=== PATIENT | female | born 1990 | race Caucasian/White ===

== ENCOUNTER 2020-08-08 16:47 | Emergency (ER) | payer OTHER, SELFPAY ==
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
[2020-08-08 16:58] VITALS: BP 129/81; PULSE 99; RESP 16; TEMP 36.5; O2SAT 99
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
== END 2020-08-08 18:13 | disposition home or self-care (01) ==
PROVIDERS: Emergency Provider Emergency Medicine; PCP Family Medicine
DX: S16.1XXA Strain of muscle, fascia and tendon at neck level, initial encounter (principal); E11.9 Type 2 diabetes mellitus without complications; V59.40XA Driver of pick-up truck or van injured in collision with unspecified motor vehicles in traffic accident, initial encounter
CPT/HCPCS: 72125; 99284

== ENCOUNTER → 2021-07-01 08:50 | Outpatient (CLI) | payer OTHER, SELFPAY ==
--- NOTE | ~2021-07-01 | MMUS_ITS ---
EXAMINATION: MM diagnostic dario BI w kadeem, US breast LT limited HISTORY: Left breast lump, lower mid left breast f TECHNIQUE: Bilateral ML, MLO and CC full field and left additional spot ML, MLO and CC 3-D tomosynthe sis images were performed and synthetic 2-D images were generated. CAD analysis was submitted and int erpreted. High resolution targeted 6:00 left breast ultrasound was performed. COMPARISON: 07/01/2021 bilateral diagnostic mammogram BREAST PARENCHYMAL COMPOSITION: There are scattered areas of fibroglandular density. FINDINGS: MAMMOGRAPHIC FINDINGS: An ill-defined approximately 8 mm opacity is noted in the lower mid left breast at approximately 6:00 position. Targeted left breast ultrasound examination was performed. No suspicious mass, architectural distortion, malignant calcification, skin thickening or retraction of either breast is noted otherwise. ULTRASOUND: 6:00 8 cm from nipple at area of clinical complaint of left breast lump: Parallel circumscribed hypoe choic approximately 7.2 x 2.4 x 5.1 mm lesion with through transmission posterior enhancement. A smal l tract to the skin is suggested. This is likely a complicated cyst, likely a sebaceous cyst. IMPRESSION: 1. Benign sebaceous cyst at 6:00 8 cm from nipple; no mammographic evidence of malignancy 2. Routine mammographic screening is recommended BI-RADS Category 2: Benign finding(s). Reviewed, dictated and finalized at location A. IMPRESSION: 1. Benign sebaceous cyst at 6:00 8 cm from nipple; no mammographic evidence of malignancy 2. Routine mammographic screening is recommended BI-RADS Category 2: Benign finding(s).
== END ==
PROVIDERS: PCP Family Medicine; Visit Provider Advanced Practice Midwife
DX: N63.25 Unspecified lump in the left breast, overlapping quadrants (principal)
CPT/HCPCS: 76642; 77062; 77066; G0279

== ENCOUNTER 2021-09-18 12:54 | Outpatient (CLI) | payer OTHER, SELFPAY ==
--- NOTE | ~2021-09-18 | MR_ITS ---
EXAMINATION: MR pituitary wo/w con DATE: 09/18/2021 14:14 INDICATION: Hyperprolactinemia. TECHNIQUE: Magnetic resonance imaging (MRI) of the brain and brainstem was performed without and with 15 mL MultiHance intravenous contrast. COMPARISON: None. FINDINGS: The pituitary is normal in size with height of 6 mm. The infundibulum is at the midline. Th ere is no intracranial hemorrhage, acute infarction, or abnormal intracranial mass lesion. There is a small focus of increased T2-weighted signal intensity in the right parietal lobe white matter, which is normal as an isolated finding. The ventricles are normal in size. There is mild mucosal thickenin g in the paranasal sinuses. The orbits are normal. The mastoid air cells are normal. IMPRESSION: 1. Normal brain. Reviewed, dictated and finalized at location A. IMPRESSION: 1. Normal brain.
== END 2021-09-18 12:55 | disposition home or self-care (01) ==
PROVIDERS: PCP Family Medicine; Visit Provider Nurse Practitioner Family
DX: E22.1 Hyperprolactinemia (principal)
CPT/HCPCS: 70553; A9577

== ENCOUNTER 2022-01-05 16:00 | Emergency (ER) | payer OTHER, SELFPAY ==
[2022-01-05 16:24] VITALS: BP 130/77; PULSE 98; RESP 16; TEMP 36.7; O2SAT 98
--- NOTE | 2022-01-05 18:08 | ED.URI ---
HPI - URI/Sore Throat General Chief Complaint: Upper Respiratory Infection Stated Complaint: cough sinus and neck pain fever Source: patient Mode of arrival: ambulatory Limitations: no limitations History of Present Illness HPI Narrative: 31-year-old female presents to [facility] with complaints of cough, nasal congestion, intermittent fevers on and off for the past 10-14 days. Patient reports that she was diagnosed with influenza A 10 days ago and was prescribed Tamiflu which she did not take, Medrol Dosepak and Tessalon Perles. Patient reports that she felt that her symptoms are improving and became worse again 3 days ago. Patient reports that she has been lying around a lot and has since started with intermittent neck pain. Patient reports that she has been taking [id number] ibuprofen, Tylenol. Patient has history of diabetes. MD elicited complaint: cough, rhinorrhea and nasal congestion Onset (ago): day(s) (-) Able to tolerate fluids by mouth: Yes Treatments prior to arrival: acetaminophen and ibuprofen Related Data Allergies Allergy/AdvReac Type Severity Reaction Status Date / Time No Known Drug Allergies Allergy Mild Unknown Verified 01/05/22 17:56 Review of Systems Constitutional: Constitutional: Reports chills, Reports fatigue, Reports fever(s) and Denies weakness ENT: Denies vertigo and Denies dizziness Respiratory: Respiratory: Reports cough, Denies dyspnea and Denies wheezing Gastrointestinal: Gastrointestinal: Denies abdominal pain, Denies diarrhea, Denies nausea and Denies vomiting Integumentary/Breasts: Skin/Breast: Denies rash Neurologic: Denies vertigo and Denies dizziness Allergic/Immunologic: Allergic/Immunologic: Denies throat swelling, Denies tongue swelling and Denies wheezing PMFSH Past Medical History Medical History Anxiety Chronic constipation Left hip pain Pain in left beltran Psoriasis Type 2 diabetes mellitus with hyperglycemia Surgical History Surgical History History of tonsillectomy Family History Family History Father Hypertension Family history of elevated blood lipids Grandparent Family history of bronchitis Carcinoma of colon Family history of malignant neoplasm of breast Family history of malignant neoplasm of ovary Sibling Family history of diabetes mellitus in first degree relative Social History Social History Smoking status: Never smoker Second hand tobacco smoke exposure: No Alcohol intake: current Drinks per week: 1 Alcohol use details: socially Substance use: never Substance use type: does not use Additional occupation/education comments: House Gender identity (if verbalized by the patient): Female Sexual Orientation (if Verbalized by the Patient): Straight or Heterosexual Comments At time of signature, I agree with nursing past medical, surgical, social and family history. There is no relevant family history pertinent to the presenting complaint. Exam Const: General: healthy appearing, no acute distress and alert Nutritional Appearance: well nourished Orientation/consciousness: patient oriented x3 Limitations: no limitations HENMT: Head: normal to inspection Ears: external ears normal and TM's normal bilaterally Face/Nose/Sinus: Normal external nose present and Nasal discharge present Face and sinus: normal facial exam Mouth: Yes Normal oral and palatal mucosa present and Yes moist mucous membranes Teeth and gingiva: dentition normal Throat: posterior oropharynx normal and uvula midline Other: Full range of motion of neck noted during examination. No nuchal rigidity noted Eyes: Conjunctivae: conjunctivae normal Neck: Neck: normal visual inspection Resp: Effort & Inspection: normal respirato
== END 2022-01-05 18:20 | disposition home or self-care (01) ==
PROVIDERS: Emergency Provider Nurse Practitioner Family; PCP Family Medicine
DX: J06.9 Acute upper respiratory infection, unspecified (principal); M54.2 Cervicalgia; Z20.822 Contact with and (suspected) exposure to COVID-19; E11.9 Type 2 diabetes mellitus without complications; L40.9 Psoriasis, unspecified
CPT/HCPCS: 87426; 99213; C9803; G0463

== ENCOUNTER 2022-02-07 14:16 | Outpatient (CLI) | payer OTHER, SELFPAY ==
--- NOTE | ~2022-02-07 | XR_ITS ---
EXAMINATION: XR knee RT 3V DATE: 02/07/2022 14:35 INDICATION: Right knee pain. TECHNIQUE: 3 views of right knee were obtained. COMPARISON: None. FINDINGS: Bone alignment is normal. No fracture. There is a benign bone island in proximal tibia. Chata nt spaces are well maintained. There is no knee joint effusion. IMPRESSION: 1. Normal right knee. Reviewed, dictated and finalized at location A. FING DIRECTOR IMPRESSION: 1. Normal right knee.
--- NOTE | ~2022-02-07 | XR_ITS ---
EXAMINATION: XR knee LT 3V DATE: 02/07/2022 14:35 INDICATION: Left knee pain. TECHNIQUE: 3 views of left knee were obtained. COMPARISON: None. FINDINGS: Bone alignment is normal. No fracture. Joint spaces are well maintained. There is no knee j oint effusion. IMPRESSION: 1. Normal left knee. Reviewed, dictated and finalized at location A. CONE INSPECTOR IMPRESSION: 1. Normal left knee.
== END 2022-02-07 14:17 | disposition home or self-care (01) ==
PROVIDERS: PCP Family Medicine; Visit Provider Nurse Practitioner Family
DX: M25.561 Pain in right knee (principal); M25.562 Pain in left knee
CPT/HCPCS: 73562

== ENCOUNTER 2023-05-13 07:20 | Day surgery (SDC) | payer OTHER, SELFPAY ==
[2023-04-23 09:40] VITALS: BMI 26.7
[2023-05-13 08:59] VITALS: BMI 26.7
--- NOTE | 2023-05-13 09:08 | WPDHPUPDATE1 ---
History and Physical Update Update Date/Time: 05/13/23 09:08 History and Physical has been reviewed, including an updated exam of the patient. There are NO changes in the patient's condition. Risks, benefits, and alternatives have been discussed and questions answered. Patient agrees to proceed with procedure.
[2023-05-13] MEDS: LACTATED RINGERS 1,000 ML 150 ML IV CONT (09:13)
[2023-05-13 09:16] VITALS: BP 125/75; PULSE 76; RESP 16; TEMP 36.3; O2SAT 100
--- NOTE | 2023-05-13 10:03 | WPDANESEPPF ---
Anes - Initial Pre Proc Eval Procedure: Operation Date: 05/13/23 10:00 Proposed Procedures p Colonoscopy - Cory Mosher MD Date/Time: 05/13/23 10:03 Surgeon: Cory Mosher MD Pre Op Diagnosis: Abdominal Distension, Constripation Patient Data Age: 32 Gender: F Height: 1.73 m Weight: 79.9 kg Last Vital Signs Temp 36.3 C L 05/13/23 09:16 Pulse 76 05/13/23 09:16 Resp 16 05/13/23 09:16 BP 125/75 05/13/23 09:16 Pulse Ox 100 05/13/23 09:16 O2 Del Method Room Air 05/13/23 09:16 Allergies Allergy/AdvReac Type Severity Reaction Status Date / Time No Known Drug Allergies Allergy Mild Unknown Verified 05/13/23 08:53 Home Medications Medication Instructions Recorded Confirmed Type buspirone 10 mg tablet 10 mg PO BID PRN anxiety #60 tabs 05/23/22 05/13/23 Rx bupropion HCl 150 mg 24 hr tablet, 150 mg PO QAM #90 tabs 09/09/22 05/13/23 Rx extended release (Wellbutrin XL) lactulose 20 gram/30 mL oral 20 g (30 mL) PO BID PRN 04/21/23 05/13/23 Rx solution constipation #2,880 mL meloxicam 7.5 mg tablet 7.5 mg PO BID PRN knee pain #30 04/22/23 05/13/23 Rx tabs dextroamphetamine-amphetamine ER 30 mg PO QAM #30 caps 04/24/23 05/13/23 Rx 30 mg 24hr capsule,extend release dextroamphetamine-amphetamine 10 10 mg PO DAILY #30 tabs 05/07/23 05/13/23 Rx mg tablet (Adderall) Patient hx anesthesia problems: none Family hx anesthesia problems: none Results Review: All pre-operative results and documents have been reviewed as part of the pre-operative evaluation. [facility] Past Medical History Medical History Anxiety Bloating Chronic constipation Left hip pain Pain in left beltran Psoriasis Type 2 diabetes mellitus with hyperglycemia Surgical History Surgical History History of tonsillectomy Family History Family History Father Hypertension Family history of elevated blood lipids Grandparent Family history of bronchitis Carcinoma of colon Family history of malignant neoplasm of breast Family history of malignant neoplasm of ovary Sibling Family history of diabetes mellitus in first degree relative Social History Social History Smoking status: Current every day smoker Tobacco type: e-cigarettes/vaping Second hand tobacco smoke exposure: No Alcohol intake: current Drinks per week: 1 Alcohol use details: seldom Substance use: current Substance use type: marijuana Last use: edibles occasionally Lack of Transportation: No Lack of Food: Never True Current Housing: I Have Housing Concerned About Future Housing: No Difficulty Paying Gas/Electric Bills: No Difficulty Paying for Meds: No Currently Unemployed: No Education: Trade/Vocational Certificate Difficulty w/ Childcare or Family Care: No Living arrangements: with family Occupation/Education: other Additional occupation/education comments: House Gender identity (if verbalized by the patient): Female Sexual Orientation (if Verbalized by the Patient): Straight or Heterosexual Spiritual care concerns: No Anes - Eval Final PreProcedure Day of Procedure 05/13/23 10:03 Patient weight: overweight Heart: regular rate and rhythm Lungs: clear to auscultation Airway: Mallampati scale class II Neurological: alert and oriented Last oral intake: >/= 8 hours ASA classification: III Emergent: no Anesthetic plan: proceed Anesthesia type and monitoring: general GIVS and standard monitoring Results Review: All pre-operative results and documents have been reviewed as part of the pre-operative evaluation. Informed Consent: The patient's anesthetic plan and its attendant risks and benefits were discussed with the patient/family/POA. Questions w
[2023-05-13 10:28] VITALS: BP 104/72; PULSE 76; RESP 14; O2SAT 100
[2023-05-13 10:38] VITALS: BP 120/80; PULSE 82; RESP 16; O2SAT 100
--- NOTE | 2023-05-13 10:39 | WPDANESPN ---
Anes - Prog Note Post-Op Date/Time: 05/13/23 10:39 Cardiovascular status: normal Respiratory status: normal Airway patency: baseline Mental status: baseline Post-Op hydration status: normal Vital Signs: Last Vital Signs Temp 36.3 C L 05/13/23 09:16 Pulse 76 05/13/23 10:28 Resp 14 05/13/23 10:28 BP 104/72 05/13/23 10:28 Pulse Ox 100 05/13/23 10:28 O2 Del Method Room Air 05/13/23 10:28 Pain Score (VAS): 0 I/O: Intake & Output 05/12/23 05/13/23 05/13/23 23:59 07:59 15:59 Intake Total 400 Balance 400 Patient Feedback: Patient satisfied with anesthetic care.
[2023-05-13 10:48] VITALS: BP 121/77; PULSE 74; RESP 14; O2SAT 100
== END 2023-05-13 10:59 | disposition home or self-care (01) ==
PROVIDERS: PCP Family Medicine; Visit Provider Internal Medicine Gastroenterology
PROC: 0DJD8ZZ Inspection of Lower Intestinal Tract, Via Natural or Artificial Opening Endoscopic (ICD-10-PCS; CPT 45378; principal; 2023-05-13 10:00)
DX: R14.0 Abdominal distension (gaseous) (principal); K59.00 Constipation, unspecified
CPT/HCPCS: 45378

== ENCOUNTER 2024-12-15 09:00 | Outpatient (RCR) | payer OTHER, SELFPAY ==
--- NOTE | 2024-12-07 13:55 | OPREHPOC ---
Outpatient Therapy Plan of Care This is a Multidisciplinary Plan of Care that may contain components documented by all disciplines (PT, OT, and ST.) PT Problem 1 PT Problem #1 Knowledge Deficit PT Goal 1 Goal / Goal Update 1. Patient will perform independent HEP Target Visit 2 PT Problem 2 PT Problem #2 Pain PT Goal 1 Goal / Goal Update 1. Pain no higher than 3/10 with BM 2. Pain will not limit daily activities Target Visit 5 PT Problem 3 PT Problem #3 Impaired Strength PT Goal 1 Goal / Goal Update 1. Improve pelvic floor strength to 4/5 with complete relaxation after to reduce incontinence and constipation Target Visit 5 PT Problem 4 PT Problem #4 Impaired Functional ADLs PT Goal 1 Goal / Goal Update 1. Patient will report BM 5 days out of 7 2. Patient will report urinary incontinence no more than 1 time a week 3. Patient will not need to sit for BM more than 10 minutes at a time Target Visit 5
--- NOTE | 2024-12-07 13:55 | PTOPEVAL1 ---
Assessment and note entered by Shana Perez DPT Evaluation Information Assessment Status Evaluation Diagnosis r59.09 ICD-10 Condition Codes (PT) Weakness R53.1 Subjective Information Pt reports a history of constipation and GI issues after having her last child. Constipation is worsening, colonoscopy in 2023 and reports no findings. Has tried different medicines and reports the current one causes some nausea. Voids 6-8 times a day, 1-2 times at night. Gets urinary incontinence daily, unsure how many times, and is always related to activity, sneeze, etc. Can hold urge to void at least 20 minutes. Denies pain with urination. Lately BM every couple days and reports incomplete emptying. Sometimes sits on toilet up to 20 minutes and then will need to come back for another 20 minutes later, lots of straining. Pain with BM and gets abdominal discomfort and bloating which cause difficulty with daily tasks. Highest pain recently 6/10 and lowest 0/10. Denies fecal incontinence. Denies history of pelvic pain. Pt has been 3 times, 3 vaginal deliveries. Gestational diabetes with all, tearing with her first. Uterine ablation in 2019. No other CAN FILLING ROOM SWEEPER or b/b issued. Has tried fiber gummies and Miralax. Patient goal: improve regularity and complete BM Returns to MD in 3 months. Diet: water throughout the day, 1-2 cans of soda. Does not eat 3 meals a day which she attributes to constipation and food aversions from covid. eats breakfast which is usually bagel or toast, typically does not eat lunch and may eat a very small dinner Reported Pain Level Pain Score 0: Self Report Assessment PT Clinical Summary The patient is presenting to skilled therapy with a several year history of worsening constipation. She presents with decreased hip and abdominal strength and pelvic floor muscle impairments including difficulty relaxing after contraction. These impairments are contributing to her constipation and difficulty with typical activities due to pain. She also reports daily stress urinary incontinence. She will benefit from skilled therapy to address muscular impairments and weakness in order to improve constipation and incontinence and to restore full function. She will also benefit from education on other constipation management including downtraining techniques and positioning. Plan of Care Interventions Electrical Stimulation,Hot Pack/Cold Pack,Manual Therapy,Neuro Re-education,Patient/Caregiver Education,Therapeutic Activities,Therapeutic Exercise PT Services Indicated Yes Treatment Frequency and 1 time a week for 5 visits Duration These treatments will address the objective and functional deficits as defined above. The patient will be advanced safely and appropriately in order for the patient to progress towards his/her prior level of function. Additional exercises will be introduced and as well as a comprehensive home exercise program upon discharge, if needed, ?to ensure carryover of functional gains achieved in the clinic. This treatment plan has been reviewed and agreement upon by the patient.
--- NOTE | 2024-12-21 13:14 | PCPTNOTE ---
Patient cancelled appointment 12/21/24.
--- NOTE | 2025-01-04 10:08 | PTOPDC ---
Assessment and note entered by Shana Perez DPT Evaluation Information Assessment Status Discharge - Pt Not Present Diagnosis r59.09 ICD-10 Condition Codes (PT) Weakness R53.1 Subjective Information - Assessment PT Clinical Summary Patient attended therapy for 2 visits and is self discharging at this time. Plan of Care PT Services Indicated No
== END 2025-01-04 12:24 | disposition home or self-care (01) ==
LOC: ANHGOSHPT 09:00
PROVIDERS: PCP Family Medicine; Visit Provider Nurse Practitioner Family
DX: K59.09 Other constipation (principal)
CPT/HCPCS: 97110; 97112; 97140; 97162; 97530